=== PATIENT | female | born 1985 | race Caucasian/White ===

== ENCOUNTER 2018-02-16 19:05 | Outpatient (CLI) | payer OTHER ==
[2018-02-16 21:32] LABS: RHOGAM PROFILE 1 1
== END 2018-02-16 21:50 | disposition home or self-care (01) ==
LOC: OBT 19:05 → L-D 19:07 → OBT 21:50
DX: Z41.8 Encounter for other procedures for purposes other than remedying health state (principal)
CPT/HCPCS: 86850; 86885; 86900; 86901; 96372

== ENCOUNTER 2018-04-26 16:40 | Inpatient (IN) | payer OTHER ==
[~2018-04-26 16:40] MED LIST: OXYTOCIN 30 UNITS/LR 500 ML BAG IV
[2018-04-26 17:22] LABS: ADD UMIC NO; UR ASCORBIC ACID NEGATIVE (NEGATIVE); UR BACTERIA FEW /HPF (NONE SEEN); UR BILIRUBIN (Dip) NEGATIVE (NEGATIVE); UR BLOOD (Dip) NEGATIVE (NEGATIVE); UR CLARITY SLIGHTLY CLOUDY (CLEAR); UR COLOR YELLOW (YELLOW); UR GLUCOSE (Dip) NEGATIVE (NEGATIVE); UR KETONES (Dip) NEGATIVE (NEGATIVE); UR LEUKOCYTE ESTERASE (Dip) NEGATIVE Leu/ul (NEGATIVE); UR MUCUS MANY /HPF (NONE SEEN); UR NITRITE (Dip) NEGATIVE (NEGATIVE); UR RBC 1 /HPF (0-5); UR SPECIFIC GRAVITY (Dip) 1.018 (1.003-1.030); UR SQUAMOUS EPITHELIAL CELL FEW /HPF (FEW); UR TOTAL PROTEIN (Dip) NEGATIVE (NEGATIVE); UR UROBILINOGEN (Dip) 1+ mg/dL (NEGATIVE); UR WBC 3 /HPF (0-5)
[2018-04-26] MEDS: LACTATED RINGER'S 1,000 ML IV ×2 (18:18→22:40)
[2018-04-26] MEDS ORDERED: MISOPROSTOL 200 MCG TAB PR ×2 (18:30→22:00)
[2018-04-26] MEDS ORDERED: METHYLERGONOVINE 0.2 MG INJ IM ×2 (18:30→22:00)
[2018-04-26] MEDS ORDERED: CEFAZOLIN 2 GM/50 ML (PMX) 50 ML IVPB (18:30)
[2018-04-26] MEDS ORDERED: OXYTOCIN 30 UNITS/LR 500 ML IV ×2 (18:30→22:00)
[2018-04-26] MEDS ORDERED: CARBOPROST 250 MCG INJ IM ×2 (18:30→22:00)
[2018-04-26 19:09] LABS: ADD MAN DIFF? NO
[2018-04-26 19:12] LABS: BASOPHILS % 0.4 % (0.0-2.0); EOSINOPHILS # 0.1 10^3/ul (0.0-0.5); EOSINOPHILS % 1.4 % (0.0-7.0); HEMATOCRIT 32.9 % (37.0-47.0); HEMOGLOBIN 10.6 g/dl (12.0-16.0); LYMPHOCYTES # 2.2 10^3/ul (0.8-2.9); LYMPHOCYTES % 30.7 % (15.0-51.0); MEAN CORPUSCULAR HEMOGLOBIN 28.6 pg (29.0-33.0); MEAN CORPUSCULAR HGB CONC 32.2 g/dl (32.0-37.0); MEAN CORPUSCULAR VOLUME 88.7 fl (82.0-101.0); MONOCYTE # 0.9 10^3/ul (0.3-0.9); MONOCYTES % 12.5 % (0.0-11.0); NEUTROPHIL # 3.9 10^3/ul (1.6-7.5); NEUTROPHILS % 53.9 % (39.0-77.0); NUCLEATED RED BLOOD CELLS% 0.6 /100WBC (0.0-0.0); PLATELET COUNT 349 10^3/UL (140-415); RED BLOOD COUNT 3.71 10^6/ul (4.20-5.40); RED CELL DISTRIBUTION WIDTH 20.1 % (11.5-14.5)
[2018-04-26 19:12] LABS: WHITE BLOOD COUNT 7.1 10^3/ul (4.8-10.8)
[2018-04-26 19:31] LABS: INR 0.84; PROTIME 11.6 Sec (11.9-14.9); PT RATIO 0.9
[2018-04-26 19:32] LABS: PARTIAL THROMBOPLASTIN TIME 28.2 Sec (23.0-35.0)
[2018-04-26] MEDS ORDERED: morphine SULFATE/PF (10 MG/10 ML) INJ (20:53)
[2018-04-26] MEDS ORDERED: OXYTOCIN 10 UNIT INJ (20:53)
[2018-04-26] MEDS ORDERED: ONDANSETRON 4 MG INJ (20:53)
[2018-04-26] MEDS ORDERED: MIDAZOLAM 1 MG/ML 2 ML INJ (21:26)
[2018-04-26] MEDS ORDERED: FENTAnyl 50 MCG/ML VIAL (21:29)
[2018-04-26] MEDS: OXYTOCIN 30 UNITS/LR 500 ML IV ×2 (21:57→22:38)
[2018-04-26] MEDS ORDERED: LANOLIN HPA 1 PKT TOP (22:00)
[2018-04-26] MEDS: IBUPROFEN 800 MG TAB PO (22:00)
[2018-04-26] MEDS ORDERED: HYDROCODONE/APAP (5/325) TAB PO (22:00)
[2018-04-26] MEDS ORDERED: DIPHENHYDRAMINE 50 MG INJ IV (22:30)
[2018-04-26] MEDS ORDERED: ONDANSETRON 4 MG INJ IV (22:30)
[2018-04-26] MEDS ORDERED: NALOXONE (0.4 MG/ML) INJ IV (22:30)
[2018-04-26] MEDS: KETOROLAC 30 MG INJ IV (22:53)
[2018-04-27] MEDS: morphine 2 MG INJ IV (00:45)
[2018-04-27] MEDS: OXYTOCIN 30 UNITS/LR 500 ML IV (03:31)
[2018-04-27] MEDS: KETOROLAC 30 MG INJ IV (05:51)
[2018-04-27] MEDS: IBUPROFEN 800 MG TAB PO ×3 (06:00→21:45)
[2018-04-27 08:19] LABS: ADD MAN DIFF? NO
[2018-04-27 08:22] LABS: BASOPHILS % 0.3 % (0.0-2.0); EOSINOPHILS # 0.1 10^3/ul (0.0-0.5); EOSINOPHILS % 0.4 % (0.0-7.0); HEMATOCRIT 29.3 % (37.0-47.0); HEMOGLOBIN 9.2 g/dl (12.0-16.0); LYMPHOCYTES # 1.9 10^3/ul (0.8-2.9); LYMPHOCYTES % 15.7 % (15.0-51.0); MEAN CORPUSCULAR HEMOGLOBIN 28.6 pg (29.0-33.0); MEAN CORPUSCULAR HGB CONC 31.4 g/dl (32.0-37.0); MEAN PLATELET VOLUME 11.2 fl (7.4-10.4); MONOCYTE # 0.8 10^3/ul (0.3-0.9); NEUTROPHIL # 9.1 10^3/ul (1.6-7.5); NEUTROPHILS % 75.9 % (39.0-77.0); PLATELET COUNT 301 10^3/UL (140-415); RED BLOOD COUNT 3.22 10^6/ul (4.20-5.40); RED CELL DISTRIBUTION WIDTH 19.9 % (11.5-14.5)
[2018-04-27 08:44] LABS: ANION GAP 5 (5-13); BLOOD UREA NITROGEN 9 mg/dl (7-20); CALCIUM 8.7 mg/dl (8.4-10.2); CARBON DIOXIDE 23 mmol/L (21-31); CHLORIDE 109 mmol/L (97-110); CREATININE 0.45 mg/dl (0.44-1.00); Estimated GFR > 60 mL/min (>60); GLUCOSE 66 mg/dl (70-220); POTASSIUM 3.8 mmol/L (3.5-5.1); SODIUM 137 mmol/L (135-144)
[2018-04-27] MEDS: SENNA/DOCUSATE NA (8.6MG/50MG) TAB PO ×2 (09:59→21:45)
[2018-04-27] MEDS: OXYCODONE/ACETAMINOPHEN (5/325) TAB PO ×2 (14:28→19:38)
[2018-04-27 17:17] LABS: RHOGAM PROFILE 1 1
[2018-04-27 18:28] LABS: RAPID PLASMA REAGIN NONREACTIVE (NR)
[2018-04-28] MEDS: BISACODYL 10 MG SUPP PR (04:16)
[2018-04-28] MEDS: IBUPROFEN 800 MG TAB PO ×3 (05:56→21:26)
[2018-04-28] MEDS: SENNA/DOCUSATE NA (8.6MG/50MG) TAB PO ×2 (09:04→21:26)
[2018-04-28] MEDS: HYDROCODONE/APAP (5/325) TAB PO (17:04)
[2018-04-29] MEDS: IBUPROFEN 800 MG TAB PO (05:46)
[2018-04-29] MEDS: MEASLES,MUMPS,RUBELLA VACCINE INJ SC* (09:00)
[2018-04-29] MEDS: SENNA/DOCUSATE NA (8.6MG/50MG) TAB PO (09:32)
[2018-04-29] MEDS: DIPHTH/TET/ACEL PERTUSS (ADULT) 0.5 ML VIAL IM* (11:32)
== END 2018-04-29 12:55 | disposition home or self-care (01) | DRG 788 ==
LOC: OBT 16:40 → PP1 04-27 00:33 → L-D 16:41 → OBT 17:55 → L-D 17:55
PROC: 10D00Z1 Extraction of Products of Conception, Low, Open Approach (ICD-10-PCS; principal; 2018-04-26 21:00)
DX: O41.03X0 Oligohydramnios, third trimester, not applicable or unspecified (principal); O34.219 Maternal care for unspecified type scar from previous cesarean delivery; O99.02 Anemia complicating childbirth; D50.9 Iron deficiency anemia, unspecified; Z3A.38 38 weeks gestation of pregnancy; Z37.0 Single live birth; Z23 Encounter for immunization
CPT/HCPCS: 76815; 76818; 80048; 81001; 81003; 85025; 85610; 85730; 86592; 86850; 86870; 86885; 86900; 86901; 86920; 90715; 99464